=== PATIENT | male | born 1990 | race Caucasian/White ===

== ENCOUNTER 2024-11-24 10:10 | Outpatient (AMB) | payer OTHER, SELFPAY ==
--- NOTE | 2024-11-24 10:19 | MHC.PC.OV ---
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: No Allergies No Known Allergies (No Known Allergies*) Allergy (Unverified 11/24/24 10:23) Medication List - Last Reconciled 11/24/24 by Amanda Gonzalez, RN SURGICAL-BC betamethasone dipropionate 0.05% 1 appl topical DAILY PRN mupirocin calcium 2% 1 appl topical BID Tobacco use date assessed: 11/24/24 Dental Screening Dental Screen Date: 11/24/24 Did you have a dental visit in the last 12 months?: No Did you have a dental problem in the last 6 months where you did not have access to dental care?: No Was dental information given to patient?: No HPI HPI Comments History of Present Illness Details 33 y/o M Social: unemployed, Surgery: Never Fhx: Mom and Dad alive and well; Siblings alive and well. No children. 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 - No records, no recent PCP - CC: severe eczema Bilat arms/hands - Severe eczema with significant itchiness, puffiness, and cracked open areas. - Chronic, ongoing eczema affecting sleep and work. - Interest in allergy testing. - Bilat ears feel blocked today Social History - Not working currently due to eczema. Was working in [employer] - with no children. - Interested in wellness screenings and physician scientist referral. Health Maintenance - Discussion of a tetanus shot due to open skin areas from eczema. - Wellness screenings for diabetes, anemia, and cholesterol planned. - Referral to physician scientist for allergy testing. Review of Systems - Integumentary: Reports severe eczema with itchiness and cracked open areas on hands. - ENT: Reports ear congestion, especially when sleeping. - Vision: Denies issues, just tiredness. - General: Reported fatigue. - Musculoskeletal: Denies any issues with feet; only hands are affected by eczema. Physical Exam General: Well developed, well nourished, in no acute distress. Appears stated age. Head: Normocephalic, atraumatic. Eyes: Pupils are equal, round and reactive to light and accommodation. Conjunctivae are clear. Vision grossly normal. Ears: TMs clear AU, EACS WNL s/p lavage bilat to remove cerumen impaction Nose: Patent, without discharge. Neck: Supple, no adenopathy or thyromegaly. Breast: Edu on SBE Lungs: Clear to auscultation bilaterally. No rales, rhonchi or wheeze noted. Good air flow in all del real. Heart: Regular rate and rhythm. No murmurs, click, rubs or gallops are noted. Abdomen: Bowel sounds present in all quadrants. The abdomen is soft, nontender, with no masses or organomegaly noted. No hernias are noted. : Deferred. 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 Extremities: No clubbing, cyanosis nor edema is noted. Neurologic: Gait and station normal. Cranial Nerves 2-12 intact. Motor strength grossly symmetrical and intact. No sensory loss. Balance normal. Skin: Eczema noted on hands with cracked open areas (see pictures; Pic 2&4 are today, the others are from a few weeks ago via 's phone). Turgor is good. Skin color is good. Hair and nails are without abnormalities. Psych: Normal eye contact, affect and mood appropriate, and normal interactions. Patient is alert and appropriate to context. Results Pending Discussion Notes During the visit, we discussed the severity of the patient's eczema and its significant impact on his quality of life and ability to work. We reviewed a treatment plan involving the use of a topical steroid cream, betamethasone, to manage the eczema symptoms. An antibiotic, mupirocin, was prescribed to apply to the cracked open areas to prevent any possible infection. We discussed the importance of covering the hands at night to enhance the effectiveness of the treatment. Furthermore, a tetanus vaccination was recommended and will be administered during this visit, given the open skin areas associated with the eczema. I also discussed with the patient the availability of new treatments for eczema, including injectables that may be explored in the future with dermatology. We arranged a referral to both dermatology and an physician scientist for further evaluation and management. Finally, wellness screenings will be conducted today, and results will be provided through the patient portal. Assessment and Plan 1. Severe Eczema - Betamethasone cream for eczema treatment. - Mupirocin for infection prevention on cracked areas. - Dermatology referral for further management. 2. Ear Congestion - Consider ear flushing treatment. 3. Health Maintenance - Tetanus vaccination. - Conduct screenings for diabetes, cholesterol, anemia. 4. Allergy Testing - Allergy referral to [facility]. Patient Instructions - Apply betamethasone cream to affected areas on hands. - Use mupirocin on cracked open areas as needed. - Cover hands with gloves or socks at night. - Expect a referral for a dermatology visit. - Receive tetanus shot today. - Attend wellness screenings for wider health checks. - Look for an email to sign up for the patient portal to receive test results. Consent Patient was informed and verbally consented to the use of an ambient scribe for clinic note documentation during this visit. Total time spent caring for the patient today was 15 minutes. This includes time spent before the visit reviewing the chart, time spent during the visit, and time spent after the visit on documentation, reviewing laboratory results, diagnostic imaging, medications, performing a medically necessary evaluation, counseling on diagnoses, care coordination, ordering appropriate tests, ordering appropriate medications, review of tests performed by other providers, reporting test results with the patient, communication with other healthcare providers [facility] Medical History (Updated 11/24/24 @ 10:54 by Amanda Gonzalez [facility]) No pertinent family history No pertinent past medical history Surgical History (Updated 11/24/24 @ 10:33 by Lucy Cordon MA) No pertinent past surgical history Social History Household Members: Spouse Both parents involved: No Caregiver staying overnight: No Housing: House Are you a primary director of primary care to a significant other at home: No Do you presently have visiting nurse or other home services: No 75 years or older and lives alone: No Alcohol intake: current Alcohol intake frequency: a few times a month Patient Tobacco Use Status: Never used Tobacco e-Cigarette/Vaping Use: Never Used Second Hand Smoke Exposure: No service: No Current occupational status: employed 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 1. Little interest or pleasure in doing things: not at all 2. Feeling down, depressed, or hopeless: not at all 3. Trouble falling or staying asleep, or sleeping too much: not at all 4. Feeling tired or having little energy: not at all 5. Poor appetite or overeating: not at all 6. Feeling bad about yourself - or that you are a failure or have let yourself or your family down: not at all 7. Trouble concentrating on things, such as reading the newspaper or watching television: not at all 8. Moving or speaking so slowly that other people could have noticed. Or the opposite - being so fidgety or restless that you have been moving around a lot more than usual: not at all 9. Thoughts that you would be better off or of hurting yourself in some way: not at all Total score: 0 Depression Screening Interpretation: Negative Depression Screening Done: Yes 35505 - PHQ-9 Billing: Yes Source: Developed by Drs. Luis Bender, Ayesha Phipps, Kevin Pena and colleagues, with an educational jose from [employer]. Thrive Questionnaire Date Thrive assessed: 11/24/24 I am a: Patient What is your living situation today?: I have a steady place to live Within the past 12 months, did the food you bought not last and you didn't have the money to get more?: Never true Within the past 12 months, did you worry whether your food would run out before you got money to buy more?: Never true Do you have trouble paying for medicines?: No Do you have trouble getting transportation to medical appointments?: No Do you have trouble paying your heating and electricity bill?: No Do you have trouble taking care of your child, family member or friend?: No Do you have trouble with day-to-day activities such as bathing, preparing meals, shopping, managing finances, etc.?: No Are you currently unemployed and looking for a job?: No Are you interested in more education?: No Please select the resources that you would like help with: None Currently or been in a relationship where the following occur: No concerns reported THRIVE Score: 0 AUDIT C Alcohol Use Questionnaire (AUDIT-C) 1. How often do you have a drink containing alcohol?: 2-3 times a week 2. How many drinks containing alcohol do you have on a typical day when you are drinking?: 1 or 2 3. How often do you have six or more drinks on one occasion?: Monthly Total Score: 5 Score Reviewed/Action Taken: Yes MIGUEL ANGEL-7 AMB Questionnaire MIGUEL ANGEL-7 Date MIGUEL ANGEL - 7 assessed: 11/24/24 Feeling nervous, anxious, or on edge: 0 = Not at all Not being able to stop or control worryin = Not at all Worrying too much about different things: 0 = Not at all Trouble relaxin = Not at all Being so restless that it is hard to sit still: 0 = Not at all Becoming easily annoyed or irritable: 0 = Not at all Feeling afraid as if something awful might happen: 0 = Not at all Total MIGUEL ANGEL-7 score (0-4 normal; 5-9 mild; 10-14 moderate; 15-21 severe): 0 Source: Developed by Drs. Luis Bender, Ayesha Phipps, Kevin Pena and colleagues, with an educational jose from [employer]. MIGUEL ANGEL-7 Assessment Billing MIGUEL ANGEL-7 Assessment Tool: MIGUEL ANGEL-7 Assessment 95236 Physical exam (Primary Care) Depression Screening Interpretation: Negative Currently or been in a relationship where the following occur: No concerns reported Office Procedures Cerumen Removal From which ear canal was the cerumen removed: bilateral Removal: irrigation Notes: patient tolerated procedure well, no complications and ear canal clear 40010-Azn Irrigation/Lavage Coding Level of Care Code New Pt Level 2 (79403) New Pt Prev Care 18-39yr(42966 Diagnoses Encounter to establish care with new provider Z76.89 Other eczema L30.8 Eczema type: other Multiple environmental allergies Z91.09 Laboratory exam ordered as part of routine general medical examination Z00.00 Obesity (BMI 30-39.9) E66.9 Impacted cerumen, bilateral H61.23 Need for Tdap vaccination Z23 Encounter for general adult medical examination without abnormal findings Z00.00 CPT Codes Office Procedure - CPT: 79650-Cme Irrigation/Lavage ([id number]) Additional Codes PHQ-9 - 31870 - PHQ-9 Billing: Yes ([id number]) MIGUEL ANGEL-7 Assessment Billing - MIGUEL ANGEL-7 Assessment Tool: MIGUEL ANGEL-7 Assessment 60957 ([id number]) Assessment & Plan Assessment & Plan (1) Encounter to establish care with new provider: Code(s): Z76.89 - Persons encountering health services in other specified circumstances (2) Eczema: Code(s): L30.9 - Dermatitis, unspecified Category: Medical Qualifiers: Eczema type: other Qualified Code(s): L30.8 - Other specified dermatitis (3) Multiple environmental allergies: Code(s): Z91.09 - Other allergy status, other than to drugs and biological substances Category: Medical (4) Laboratory exam ordered as part of routine general medical examination: Code(s): Z00.00 - Encounter for general adult medical examination without abnormal findings Category: Medical (5) Obesity (BMI 30-39.9): Code(s): E66.9 - Obesity, unspecified Category: Medical (6) Impacted cerumen, bilateral: Code(s): H61.23 - Impacted cerumen, bilateral (7) Need for Tdap vaccination: Code(s): Z23 - Encounter for immunization Category: Medical (8) Encounter for general adult medical examination without abnormal findings: Onset Date: ~11/24/24 Code(s): Z00.00 - Encounter for general adult medical examination without abnormal findings Category: Medical Plan , Orders: Orders Lipid Panel Today Z00.00 - Encounter for general adult medical examination without abnormal findings TSH reflex Free T4 Today Z00.00 - Encounter for general adult medical examination without abnormal findings Vitamin D 25-OH Total Today Z00.00 - Encounter for general adult medical examination without abnormal findings TDaP Immunization Today Z23 - Encounter for immunization Comprehensive Met. Panel Today Z00.00 - Encounter for general adult medical examination without abnormal findings Complete Blood Count no Diff Today Z00.00 - Encounter for general adult medical examination without abnormal findings Hemoglobin A1c Today Z00.00 - Encounter for general adult medical examination without abnormal findings Microalbumin, Random (w Creat) Today Z00.00 - Encounter for general adult medical examination without abnormal findings Vitamin B12 and Folate Today Z00.00 - Encounter for general adult medical examination without abnormal findings Referrals Dermatology Referral L30.9 - Dermatitis, unspecified Allergy & Immunology Referral Z91.09 - Other allergy status, other than to drugs and biological substances Medications: New mupirocin calcium 2% 1 appl topical BID 15 grams 0RF Boostrix Tdap (diphth,pertus(acell),tetanus) 0.5 mL IM ONCE 0.5 mL 0RF NS Z23 - Encounter for immunization betamethasone dipropionate 0.05% 1 appl topical DAILY PRN 60 mL 6RF skin irritation Patient Instructions: Patient Instructions - Apply betamethasone cream to affected areas on hands. - Use mupirocin on cracked open areas as needed. - Cover hands with gloves or socks at night. - Expect a referral for a dermatology visit. - Receive tetanus shot today. - Attend wellness screenings for wider health checks. - Look for an email to sign up for the patient portal to receive test results. - Return 1 year for physical, sooner as needed. Walk-In Care (Urgent Care): We Make it Easy Walk-in for urgent medical issues such as: ? Seasonal Allergies ? Insect Bites ? Cough ? Diarrhea ? Acute Asthma Attacks ? Back, Knee or Joint Pain ? Ear Infection ? Fever without a Rash ? Headaches ? Nausea ? [place] [facility], Rash or Skin Irritation ? Sore Throat ? Sports Physicals ? Vomiting Most insurances are accepted. Patients do not need to be part of the [facility] to seek care at the walk-in clinic. Locations [facility] , [place] [address] ? [phone] [facility] in [place] provides services to ages 18 and over. Open Wednesday-Wednesday: 8 a.m. to 5 p.m. and Wednesday: 9 a.m. to 3 p.m.* *Hours may vary due to staffing availability. To confirm Walk-In Care hours in [place], please call [phone]. [address] [place] [id number] ? [phone] [facility] in [place] provides services to ages 12 and over. Open Wednesday-Wednesday: 8 a.m. to 5 p.m. Hours may vary due to staffing availability. To confirm Walk-In Care hours in [place], please call [phone]. LABORATORY SERVICES: [facility] Lab ? Primary Location [address] [place] [address] Wednesday through Wednesday 6:00 AM ? 5:00 PM Wednesday 7:00 AM ? 11:00 AM* [phone] The [facility] Lab is centrally located near the front entrance of the [facility] for easy outpatient access. Convenient parking is provided for outpatients. *Hours may vary due to staffing availability. To confirm Laboratory hours for any location, please call [phone]. Offsite Location For your convenience, we offer offsite laboratory draw stations at the following locations: [address] [place] [address], [facility] ? [facility] [address] [facility], [address], [place] Wednesday through Wednesday 7:30 AM ? 1:00 PM* [phone] *Hours may vary due to staffing availability. To confirm Laboratory hours for any location, please call [phone]. [place] ? [address], [place] Wednesday through Wednesday 6:00 AM ? 3:30 PM* Wednesday 6:30 AM ? 3 PM* [phone] *Hours may vary due to staffing availability. To confirm Laboratory hours for any location, please call [phone] [place] [address] Wednesday through Wednesday 7:30 AM ? 4:00 PM* [phone] *Hours may vary due to staffing availability. To confirm Laboratory hours for any location, please call [phone] [place] [address] Wednesday through 9:00 AM ? 4:00 PM* *Hours may vary due to staffing availability. To confirm Laboratory hours for any location, please call [phone]. Appointments are not necessary. Walk-ins are welcome. Like all the departments throughout the [facility], our Lab undergoes frequent reviews to ensure the quality and accuracy of test results, and our staff takes special pride in its status as a nationally accredited facility. Patient Portal: ONE PATIENT. ONE RECORD. BETTER CARE. [facility] has a fully integrated, cutting-edge mobile electronic health information system that has revolutionized the way we care for our patients and manage our organization. This system improves communication and coordination enabling us to provide safe, higher-quality care, and an overall positive experience for staff and patients. Our first priority, as always, is to deliver the highest quality care possible. The system is running in the background supporting that priority. This portal is for all [facility] services and practices. If you are experiencing any technical difficulties with enrolling or logging into the Patient Portal please complete the [facility] Patient Portal Technical Support Form. [facility] now offers a new secure on-line interactive tool for patients to review their health information ? ?Patient Portal. This interactive web portal will enable patients and their families to take an active role in their care by providing easy, secure access to their health information via the internet. The Patient Portal provides patients with instant access to their health information, including laboratory results, medications, allergies, demographic information, visit history, and more. In addition to managing their own care, parents and health care proxies with authorized consent will appreciate the ability to access the records of those individuals for whom they provide care. Please note: if you wish to gain access (Proxy) to another patient?s portal, you will be required to come to the Medical Records Department in person at [facility]. Both the patient giving proxy access and the proxy will need to provide photo identification and complete the appropriate authorization. The Patient Portal also allows track their appointments online. The [facility] Patient Portal also saves patients time by allowing them to submit updates to their demographic and contact information prior to their visits. Portal email notifications will also alert patients to any new activity on their portal, such as test results and new appointments. In order to initially enroll in the [facility] Patient Portal, you will need to enter some required information including the following: your [facility] Medical Record number your personal home email address name date of Please note: In order to enroll in the [facility] Patient Portal, we need to have your email address on file in your electronic medical record. ?The email address needs to be specific for one person (yourself) in order for your Portal enrollment to be successful. ?You can update your email address in person with our Registration staff when you are registering for a hospital visit. ?Otherwise, you will need to come to the Health Information Management (Medical Records) Department at [facility]. ?We are open from Wednesday ? Wednesday from 7:30 a.m. ? 4:30 p.m. ?You will be required to present a photo id. Once you have successfully enrolled in the Patient Portal, you will receive a one-time user id and password for the Portal, sent to your email address. ?This will allow you to log into the Patient Portal within 99 hrs and reset your own logon id and password, and define personal security questions. ?Once your permanent login and password have been set, you can log into the [facility] Patient Portal at any time via the blue button above or from the Portal Logon button on any page of the [facility] website. [facility] encourage all of our patients to enroll in Patient Portal as it presents a valuable opportunity for patients and their families to actively participate in their care and stay healthy Welcome to [facility]. ?We look forward to working with you. Health screenings for men You should visit your health care provider regularly, even if you feel healthy. The purpose of these visits is to: Screen for medical issues Assess your risk for future medical problems Encourage a healthy lifestyle Update vaccinations and other preventive care services Help you get to know your provider in case of an illness Information Even if you feel fine, you should still see your provider for regular checkups. These visits can help you avoid problems in the future. For example, the only way to find out if you have high blood pressure is to have it checked regularly. High blood sugar and high cholesterol level also may not have any symptoms in the early stages. Simple blood tests can check for these conditions. There are specific times when you should see your provider or receive specific health screenings. The [place] Preventive Services Task Force publishes a list of recommended screenings. Below are screening guidelines for men ages 40 to 64. BLOOD PRESSURE SCREENING Have your blood pressure checked at least once every year. Watch for blood pressure screenings in your area. Ask your provider if you can stop in to have your blood pressure checked. Ask your provider if you need your blood pressure checked more often if: You have diabetes, heart disease, kidney problems, or are overweight or have certain other health conditions You have a first-degree relative with high blood pressure You are Black Your blood pressure top number is from 120 to 129 mm Hg, or the bottom number is from 70 to 79 mm Hg If the top number is 130 mm Hg or greater or the bottom number is 80 mm Hg or greater, this is considered stage 1 hypertension. Schedule an appointment with your provider to learn how you can lower your blood pressure. Effects of age on blood pressure CHOLESTEROL SCREENING Cholesterol screening should begin at age 35 for men with no known risk factors for coronary heart disease. Repeat cholesterol screening should take place: Every 5 years for men with normal cholesterol levels More often if changes occur in lifestyle (including weight gain and diet) More often if you have diabetes, heart disease, kidney problems, or certain other conditions COLORECTAL CANCER SCREENING If you are under age 45, talk to your provider about getting screened. You may need to be screened if you have a strong family history of colon cancer or polyps. Screening may also be considered if you have risk factors such as a history of inflammatory bowel disease or polyps. If you are age 45 to 75, you should be screened for colorectal cancer. There are several screening tests available: A stool-based fecal occult blood (gFOBT) or fecal immunochemical test (FIT) every year A stool sDNA test every 1 to 3 years Flexible sigmoidoscopy every 5 years or every 10 years with stool testing FIT done every year CT colonography (virtual colonoscopy) every 5 years Colonoscopy every 10 years You may need a colonoscopy more often if you have risk factors for colorectal cancer, such as: Ulcerative colitis A personal or family history of colorectal cancer A history of growths in your colon called adenomatous polyps DENTAL EXAM Go to the dentist once or twice every year for an exam and cleaning. Your dentist will evaluate if you have a need for more frequent visits. DIABETES SCREENING All adults who do not have risk factors for diabetes should be screened starting at age 35 and repeated every 3 years. If you have other risk factors for diabetes, such as a first degree relative with diabetes, overweight or obesity, high blood pressure, prediabetes, or a history of heart disease, you may be tested more often. If you are overweight and have other risk factors, such as high blood pressure and are planning to become , screening is recommended. EYE EXAM Have an eye exam every 2 to 4 years ages 40 to 54 and every 1 to 3 years ages 55 to 64. Your provider may recommend more frequent eye exams if you have vision problems or glaucoma risk. Have an eye exam that includes an examination of your retina (back of your eye) at least every year if you have diabetes. IMMUNIZATIONS Commonly needed vaccines include: Flu shot: get one every year COVID-19 vaccine: ask your provider what is best for you Tetanus-diphtheria and acellular pertussis (Tdap) vaccine: have as one of your tetanus-diphtheria vaccines if you did not receive it as an adolescent Tetanus-diphtheria: have a booster (or Tdap) every 10 years Varicella vaccine: receive 2 doses if you never had chickenpox or the varicella vaccine and were born in 1980 or after Hepatitis B vaccine: receive 2, 3, or 4 doses, depending on your exact circumstances, if you did not receive these as a child or adolescent, until age 59 Shingles (herpes zoster) vaccine: at or after age 50 Ask your provider if you should receive other immunizations, especially if you have certain medical conditions, such as diabetes or are at increased risk for some diseases such as pneumonia. INFECTIOUS DISEASE SCREENING Screening for hepatitis C: all adults ages 18 to 79 should get a one-time test for hepatitis C. Screening for human immunodeficiency virus (HIV): all people ages 15 to 65 should get a one-time test for HIV. Depending on your lifestyle and medical history, you may need to be screened for infections such as syphilis, chlamydia, and other infections. LUNG CANCER SCREENING You should have an annual screening for lung cancer with low-dose computed tomography (LDCT) if: You are age 50 to 80 years AND You have a 20 pack-year smoking history AND You currently smoke or have quit within the past 15 years OSTEOPOROSIS SCREENING If you are age 50 to 64 and have risk factors for osteoporosis, you should discuss screening with your provider. Risk factors can include long-term steroid use, low body weight, smoking, heavy alcohol use, having a fracture after age 50, or a family history of hip fracture or osteoporosis. Osteoporosis PHYSICAL EXAM All adults should visit their provider from time to time, even if they are healthy. The purpose of these visits is to: Screen for diseases Assess risk of future medical problems Encourage a healthy lifestyle Update vaccinations and other preventive care services Maintain a relationship with a provider in case of an illness Your height, weight, and body mass index (BMI) should be checked at every exam. During your exam, your provider may ask you about: Depression and anxiety Diet and exercise Alcohol and tobacco use Safety, such as use of seat belts and smoke detectors Your medicines and risk for interactions PROSTATE CANCER SCREENING If you're 55 through 69 years old, before having the test, talk to your provider about the pros and cons of having a PSA test. Ask about: Whether screening decreases your chance of dying from prostate cancer. Whether there is any harm from prostate cancer screening, such as side effects from testing or overtreatment of cancer when discovered. Whether you have a higher risk of prostate cancer than others. If you are age 55 or younger, screening is not generally recommended. You should talk with your provider about if you have a higher risk for prostate cancer. Risk factors include: Having a family history of prostate cancer (especially a brother or father) Being If you choose to be tested, the PSA blood test is repeated over time (yearly or less often), though the best frequency is not known. Prostate examinations are no longer routinely done on men with no symptoms. Prostate cancer SKIN EXAM Your provider may check your skin for signs of skin cancer, especially if you're at high risk. People at high risk include those who have had skin cancer before, have close relatives with skin cancer, or have a weakened immune system. TESTICULAR EXAM The [place] Preventive Services Task Force (USPSTF) now recommends against performing testicular self-exams. Doing testicular self-exams has been shown to have little to no benefit.
[2024-11-24 10:24] VITALS: BP 101/68; PULSE 65; RESP 12; TEMP 36.2; O2SAT 98
== END 2024-11-24 11:06 | disposition home or self-care (01) ==
LOC: HO.HMCFM 10:10
PROVIDERS: PCP Nurse Practitioner Family; Visit Provider Nurse Practitioner Family
DX: Z00.00 Encounter for general adult medical examination without abnormal findings (principal); L30.8 Other specified dermatitis; Z76.89 Persons encountering health services in other specified circumstances; E66.9 Obesity, unspecified; Z68.30 Body mass index [BMI] 30.0-30.9, adult; Z91.09 Other allergy status, other than to drugs and biological substances; H61.23 Impacted cerumen, bilateral; Z23 Encounter for immunization

== ENCOUNTER → 2024-11-24 10:10 | Outpatient (BNVA) | payer OTHER, SELFPAY | PROVIDERS: PCP Nurse Practitioner Family; Visit Provider Nurse Practitioner Family | DX: Z00.01 Encounter for general adult medical examination with abnormal findings (principal); Z76.89 Persons encountering health services in other specified circumstances; Z23 Encounter for immunization; L30.8 Other specified dermatitis; E66.9 Obesity, unspecified; Z68.30 Body mass index [BMI] 30.0-30.9, adult; H61.23 Impacted cerumen, bilateral; Z91.09 Other allergy status, other than to drugs and biological substances; Z13.31 Encounter for screening for depression; Z13.39 Encounter for screening examination for other mental health and behavioral disorders | CPT/HCPCS: 69209; 90471; 90715; 96127 ==

== ENCOUNTER 2024-11-24 11:25 | Outpatient (REF) | payer OTHER, SELFPAY ==
[2024-11-24 15:51] LABS: Hematocrit 44.7 % (42.0-52.0); Hemoglobin 15.7 g/dl (14.0-18.0); Mean Corpuscular HGB Conc 35.1 g/dl (31.0-36.0); Mean Corpuscular Hemoglobin 35.0 pg (27.0-33.0); Mean Corpuscular Volume 99.6 fL (80.0-98.0); NRBC Abs Auto 0.000 X10*3/uL (0.0-0.012); NRBC Pct Auto 0.0 /100WBC (0.0-0.2); Platelet Count 206 X10*3/uL (160-400); Red Blood Count 4.49 X10*6/uL (4.60-5.80); White Blood Count 6.6 X10*3/uL (4.8-10.8)
[2024-11-24 16:11] LABS: Hemoglobin A1C 141.6040 umol/L; Total Hemoglobin (HGBA1C) 3998.2277 umol/L
[2024-11-24 16:23] LABS: Alanine Aminotransferase 106 U/L (0-40); Albumin Level 4.7 g/dL (3.5-5.0); Alkaline Phosphatase 96 U/L (39-117); Anion Gap 16 (12-20); Aspartate Amino Transferase 85 U/L (5-37); Blood Urea Nitrogen 5 mg/dL (9-16); Calcium 9.2 mg/dL (8.4-10.2); Carbon Dioxide 27 mmol/L (22-29); Chloride 105 mmol/L (96-108); Cholesterol 246 mg/dL (<200); Estimated Glomerular Filt Rate > 60; HDL Cholesterol 64 mg/dL (>40); Potassium 4.0 mmol/L (3.3-5.1); Sodium 144 mmol/L (135-145); Total Protein 7.7 g/dL (6.5-8.0); Triglycerides 126 mg/dL (<150)
[2024-11-24 16:23] LABS: Microalbum/Creatinine Ratio Ur 99.8 ug/mg cr (<30)
[2024-11-24 16:50] LABS: Folate 4.3 ng/mL (> or = 4.0); Vitamin B12 313 pg/mL (200-900)
== END 2024-11-24 11:26 | disposition home or self-care (01) ==
LOC: HO.WFDLDS 11:25
PROVIDERS: Visit Provider Nurse Practitioner Family
DX: Z00.00 Encounter for general adult medical examination without abnormal findings (principal)
CPT/HCPCS: 36415; 80053; 80061; 82043; 82306; 82570; 82607; 82746; 83036; 84443; 85027

== ENCOUNTER 2024-12-01 08:12 | Outpatient (AMB) | payer OTHER, SELFPAY ==
--- NOTE | 2024-12-01 07:36 | A.OFFPC_ITS ---
Intake Visit Reasons: Review lab work Intake Note: Telehealth review labs Recruitment Officer Required: No Allergies No Known Allergies (No Known Allergies*) Allergy (Verified 12/01/24 09:01) Medication List - Last Reconciled 12/01/24 by LIAM Best-BC betamethasone dipropionate 0.05% 1 appl topical DAILY PRN mupirocin calcium 2% 1 appl topical BID Tobacco use date assessed: 11/24/24 Dental Screening Dental Screen Date: 11/24/24 HPI HPI Comments History of Present Illness Details 33 y/o M with eczema, etoh abuse, elevat ed LFT, microalbuminuria, HLD History of Present Illness - The patient is a 33-year-old male pres enting with abnormal laboratory findings. - Reports no past liver problems; yousif schultz, liver enzymes are elevated. - Alcohol consumption: twice weekly, sarah landa, ongoing but reduced recently. Reports longstanding hx of heavy drinking, reduced to twice per week when mother in law . - No reported abdominal pain. - CBC macrocytic anemia, BUN low, elevat ed microalbum - Hyperlipidemia present; no prior alcoh ol consumption concerns. Review of Systems - Gastrointestinal: Denies abdominal aryan n. - General: Reports weekly heavy alcohol consumption. Physical Exam Limited physical exam was conducted Awake alert NAD Speaking in full sentences Engaging, appropriate Skin pink warm and dry Results 11/24/24 labs urine micro elevated lipids ^ lft ^ macrocytic anemia low bun Discussion Notes I discussed with the patient that labs are likely related to his alcohol consumption. We talked about the need to conduct an ultrasound of his ABD to assess. I advised against starting cholesterol-lowering medications at this time because these medicines are processed by the liver, and we need to review the liver's condition first. I proposed starting the patient on vitamin supplements to help normalize his blood counts. I also suggested consulting with an alcohol specialist to aid in reducing alcohol consumption; he declined; Discussed scheduling follow-up labs and a visit in three months to assess any changes after dietary and lifestyle adjustments. The importance of reducing alcohol consumption to improve liver and overall health was emphasized. Patient was given time to ask questions. All questions were answered to their satisfaction. Assessment and Plan 1. Elevated liver enzymes - Recommend ABD ultrasound. - Advise reduction in alcohol intake. 2. Alcohol use disorder - Recommend consultation with an alcohol specialist. - declined 3. Macrocytic anemia - Start vitamin supplementation with fol ic acid and thiamine 4. Hyperlipidemia - Delay pharmacological intervention; mo nitor liver function. repeat labs 3 months with office to fu on LFT, LIPIDS, ANEMIA, ETOH, sooner prn Patient Instructions - Schedule a liver ultrasound at your co [facility]. - Start on prescribed vitamins as direct ed. - Expect phone calls to schedule follow- up appointments. - Reduce alcohol consumption. - Follow up in three months with repeat labs. Consent Patient was informed and verbally consented to the use of an ambient scribe for clinic note documentation during this visit. Telehealth Attestation The patient has been explained that this is an interactive (audio/video) telehealth encounter and what that consists of. The patient understands and wishes to proceed. Bilbus platform was used. Total time spent caring for the patient today was 22 minutes. This includes time spent before the visit reviewing the chart, time spent during the visit, and time spent after the visit on documentation, reviewing laboratory results, diagnostic imaging, medications, performing a medically necessary evaluation, counseling on diagnoses, care coordination, ordering appropriate tests, ordering appropriate medications, review of tests performed by other providers, reporting test results with the patient, communication with other healthcare providers. [facility] Medical History (Updated 11/28/24 @ 07:27 by Amanda Gonzalez [facility]) No pertinent family history No pertinent past medical history Surgical History (Updated 11/24/24 @ 10:33 by Lucy Cordon MA) No pertinent past surgical history Social History (Updated 11/24/24 @ 10:32 by Lucy Cordon MA) Household Members: Spouse Both parents involved: No Caregiver staying overnight: No Housing: House Are you a primary home care manager rn to a significant other at home: No Do you presently have visiting nurse or other home services: No 75 years or older and lives alone: No Alcohol intake: current Alcohol intake frequency: a few times a month Patient Tobacco Use Status: Never used Tobacco e-Cigarette/Vaping Use: Never Used Second Hand Smoke Exposure: No service: No Current occupational status: employed 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 Luis Bender, Ayesha Phipps, Kevin Pena and colleagues, with an educational jose from [employer]. Physical exam (Primary Care) Tobacco/Smoking Status: Tobacco use Status Tobacco use date assessed 11/24/24 12/01/24 07:37 Patient Tobacco Use Status Never used Tobacco 12/01/24 07:37 e-Cigarette/Vaping Use Never Used 12/01/24 07:37 Thrive Assessment: Date of Thrive Assessment Date Thrive assessed 11/24/24 12/01/24 07:37 Telehealth Telehealth Telehealth Platform: Bilbus Location of provider rendering services: practice address Location of patient: address on file Patient Identification confirmed using: Name, : Yes Telehealth method: video Patient verbally consented to treatment: Yes Patient verbally consented to billing insurance company: Yes Patient informed of any privacy concerns related to visit: Yes Minutes spent on Phone/Video with Pt.: 7 Coding Level of Care Code Tele Est Pt Level 3 (58222) Complex EM visit Add On G2211 Diagnoses Dyslipidemia (high LDL; low HDL) E78.5 Elevated LFTs R79.89 Microalbuminuria R80.9 Macrocytic anemia D53.9 Low BUN R79.89 Alcohol abuse F10.10 Assessment & Plan Assessment & Plan (1) Dyslipidemia (high LDL; low HDL): Code(s): E78.5 - Hyperlipidemia, unspecified Category: Medical (2) Elevated LFTs: Code(s): R79.89 - Other specified abnormal findings of blood chemistry Category: Medical (3) Microalbuminuria: Code(s): R80.9 - Proteinuria, unspecified Category: Medical (4) Macrocytic anemia: Code(s): D53.9 - Nutritional anemia, unspecified Category: Medical (5) Low BUN: Code(s): R79.89 - Other specified abnormal findings of blood chemistry Category: Medical (6) Alcohol abuse: Code(s): F10.10 - Alcohol abuse, uncomplicated Category: Social Hx Plan . Orders: Orders US abdomen comp w elastography Today F10.10 - Alcohol abuse, uncomplicated, R79.89 - Other specified abnormal findings of blood chemistry, R80.9 - Proteinuria, unspecified Vitamin B12 and Folate 3 Months D53.9 - Nutritional anemia, unspecified, R79.89 - Other specified abnormal findings of blood chemistry, R80.9 - Proteinuria, unspecified Complete Blood Count no Diff 3 Months D53.9 - Nutritional anemia, unspecified, R79.89 - Other specified abnormal findings of blood chemistry, R80.9 - Proteinuria, unspecified Comprehensive Met. Panel 3 Months D53.9 - Nutritional anemia, unspecified, R79.89 - Other specified abnormal findings of blood chemistry, R80.9 - Proteinuria, unspecified Lipid Panel 3 Months D53.9 - Nutritional anemia, unspecified, R79.89 - Other specified abnormal findings of blood chemistry, R80.9 - Proteinuria, unspecified Microalbumin, Random (w Creat) 3 Months D53.9 - Nutritional anemia, unspecified, R79.89 - Other specified abnormal findings of blood chemistry, R80.9 - Proteinuria, unspecified Medications: New folic acid 1 mg PO DAILY 90 tabs 2RF thiamine HCl (vitamin B1) 100 mg PO DAILY 90 tabs 2RF
== END 2024-12-01 09:16 | disposition home or self-care (01) ==
LOC: HO.HMCFM 08:12
PROVIDERS: PCP Nurse Practitioner Family; Visit Provider Nurse Practitioner Family
DX: E78.5 Hyperlipidemia, unspecified (principal); R79.89 Other specified abnormal findings of blood chemistry; R80.9 Proteinuria, unspecified; D53.9 Nutritional anemia, unspecified; F10.10 Alcohol abuse, uncomplicated